=== PATIENT | female | born 1975 | race Caucasian/White ===

== ENCOUNTER 2019-10-16 16:09 | Emergency (ER) | payer OTHER, BC ==
--- OUTSIDE RECORDS SUMMARY | 2019-10-16 16:15 | XMS REPORT | Continuity of Care Document ---
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 Onset: 09/10/2018 Social History Type Date Description Comments Sex Unknown Tobacco Use Start: Unknown Never Smoked Cigarettes Smoking Status Reviewed: 09/10/19 Never Smoked Cigarettes ETOH Use Occasionally consumes wine Tobacco Use Start: Unknown Patient has never smoked Recreational Drug Use Denies Drug Use Exercise Type/Frequency Exercises rarely does house chores only , some walking Allergies, Adverse Reactions, Alerts Active Allergies Reaction Severity Comments Date Penicillin Difficulty breathing, anaphylaxis Severe 09/30/2014 Latex 09/30/2014 Medications Active Medications SIG Qnty Indications Ordering Date Provider Omeprazole 1 by mouth 30caps K21.9 Leisa Molina, 08/26/[address] every day Brisa, FACP Cyclobenzaprine HCL take 1 tablet Unknown 10mg by mouth at hs Tablets Tramadol HCL ont tab 3-4 Unknown 50mg Tablets times a day Ibuprofen three times a Unknown 600mg Tablets day Isibloom take one pill 84tabs Gabi Isaac, N.P. 0.15-30mg-mcg daily, skip Tablets placebo pills Gabapentin 3 tabs q hs Unknown 100mg Capsules Multivitamin Adult 1 by mouth Unknown Tablets every day Medications Administered in Office Medication SIG Qnty Indications Ordering Provider Date Td(Adult),Unspecified Unknown 05/25/2009 Injection Immunizations CPT Code Status Date Vaccine Lot # [id number] Given 05/21/2017 Tdap - Tetanus/Diptheria/Acellular Pertussis [id number] Refused 08/12/2018 Influenza Virus Vaccine, Quadrivalent, Split, Preservative Free [id number] Refused 05/21/2017 Influenza Virus Vaccine, Quadrivalent, Split, Preservative Free Vital Signs Date Vital Result Comment 09/10/2019 1:10pm Height 62 inches 5'2" Weight 138.00 lb Heart Rate 76 /min BP Systolic 110 mmHg BP Diastolic 60 mmHg Body Temperature 97.5 F O2 % BldC Oximetry 98 % BMI (Body Mass Index) 25.2 kg/m2 09/04/2019 4:34pm Height 62 inches 5'2" Weight 139.00 lb Heart Rate 61 /min BP Systolic Sitting 134 mmHg BP Diastolic Sitting 77 mmHg O2 % BldC Oximetry 99 % BMI (Body Mass Index) 25.4 kg/m2 Results Test Acquired Date Facility Test Result H/L Range Note Comp Metabolic 08/27/2019 [facility] Sodium 138 mmol/L Normal 135-145 [address] [place] [address] [phone] Potassium 4.3 mmol/L Normal 3.5-5.0 Chloride 105 mmol/L Normal 101-111 Co2 Carbon Dioxide 27 mmol/L Normal 22-32 Anion Gap 6 mmol/L Normal 2-11 Glucose 90 mg/dL Normal 70-100 Blood Urea Nitrogen 14 mg/dL Normal 6-24 Creatinine 0.89 mg/dL Normal 0.51-0.95 BUN/Creatinine Ratio 15.7 Normal 8-20 Calcium 9.2 mg/dL Normal 8.6-10.3 Total Protein 6.7 g/dL Normal 6.4-8.9 Albumin 4.2 g/dL Normal 3.2-5.2 Globulin 2.5 g/dL Normal 2-4 Albumin/Globulin Ratio 1.7 Normal 1-3 Total Bilirubin 0.30 mg/dL Normal 0.2-1.0 Alkaline Phosphatase 47 U/L Normal 34-104 Alt 7 U/L Normal 7-52 Ast 12 U/L Low 13-39 Egfr Non- 69.2 >60 Egfr 83.8 >60 1 CBC Auto 08/27/2019 [facility] White Blood 5.2 10^3/uL Normal 3.5-10.[address] [place] [address] [phone] Red Blood Count 3.95 10^6/uL Normal 3.70-4.87 Hemoglobin 12.1 g/dL Normal 12.0-16.0 Hematocrit 36 % Normal 35-47 Mean Corpuscular Volume 90 fL Normal 80-97 Mean Corpuscular Hemoglobin 31 pg Normal 27-31 Mean Corpuscular HGB Conc 34 g/dL Normal 31-36 Red Cell Distribution Width 13 % Normal 10-15 Platelet Count 318 10^3/uL Normal 150-450 Mean Platelet Volume 9.1 fL Normal 7.4-10.4 Abs Neutrophils 3.1 10^3/uL Normal 1.5-7.7 Abs Lymphocytes 1.6 10^3/uL Normal 1.0-4.8 Abs Monocytes 0.4 10^3/uL Normal 0-0.8 Abs Eosinophils 0.1 10^3/uL Normal 0-0.6 Abs Basophils 0.0 10^3/uL Normal 0-0.2 Abs Nucleated RBC 0.0 10^3/uL Granulocyte % 59.4 % Lymphocyte % 31.3 % Monocyte % 6.9 % Eosinophil % 2.1 % Basophil % 0.3 % Nucleated Red Blood Cells % 0.0 Order 08/26/2019 [employer] In-House EKG <pending> CBC Auto Diff 06/10/2019 [facility] White Blood 4.8 10^3/uL Normal 3.5-10.[address] [place] [address] [phone] Red Blood Count 3.85 10^6/uL Normal 3.70-4.87 Hemoglobin 11.6 g/dL Low 12.0-16.0 Hematocrit 35 % Normal 35-47 Mean Corpuscular Volume 91 fL Normal 80-97 Mean Corpuscular Hemoglobin 30 pg Normal 27-31 Mean Corpuscular HGB Conc 33 g/dL Normal 31-36 Red Cell Distribution Width 13 % Normal 10-15 Platelet Count 308 10^3/uL Normal 150-450 Mean Platelet Volume 9.0 fL Normal 7.4-10.4 Abs Neutrophils 2.8 10^3/uL Normal 1.5-7.7 Abs Lymphocytes 1.5 10^3/uL Normal 1.0-4.8 Abs Monocytes 0.3 10^3/uL Normal 0-0.8 Abs Eosinophils 0.1 10^3/uL Normal 0-0.6 Abs Basophils 0.0 10^3/uL Normal 0-0.2 Abs Nucleated RBC 0.0 10^3/uL Granulocyte % 58.5 % Lymphocyte % 32.1 % Monocyte % 6.8 % Eosinophil % 2.1 % Basophil % 0.5 % Nucleated Red Blood Cells % 0.0 Protein 06/10/2019 [facility] Total 6.8 g/dL 6.3 - Electrophoresis Porphyrio Protein(Pep) 7.9 [place] [address] [phone] Albumin 3.3 g/dL Abnormal 3.4-4.7 Alpha-1 Globulin 0.3 g/dL 0.1-0.3 Alpha-2 Globulin 1.0 g/dL 0.6-1.0 Beta Globulin 1.1 g/dL 0.7-1.2 Gamma Globulin 1.1 g/dL 0.6-1.6 Albumin/Globulin Ratio 0.95 Impression See Comment 2 Laboratory 06/10/2019 [facility] TSH (Thyroid 3.05 mcIU/mL Normal 0.34-5.[address] Stim Horm) [place] [address] [phone] HIV 1&2 p24 06/10/2019 [facility] HIV 4th Nonreactive Nonreactive [place] [address] [phone] Laboratory 06/10/2019 [facility] Vitamin B12 266 pg/mL Normal 180-[address] [place] [address] [phone] Basic 06/10/2019 [facility] Sodium 140 mmol/L Normal 135-145 Metabolic [place] [address] [phone] Potassium 3.9 mmol/L Normal 3.5-5.0 Chloride 107 mmol/L Normal 101-111 Co2 Carbon Dioxide 27 mmol/L Normal 22-32 Anion Gap 6 mmol/L Normal 2-11 Glucose 80 mg/dL Normal 70-100 Blood Urea Nitrogen 10 mg/dL Normal 6-24 Creatinine 0.82 mg/dL Normal 0.51-0.95 BUN/Creatinine Ratio 12.2 Normal 8-20 Calcium 9.5 mg/dL Normal 8.6-10.3 Egfr Non- 76.1 >60 Egfr 92.1 >60 4 Heavy Metal Blool 06/10/2019 [facility] Arsenic <1 ng/mL 0- [address] [place] [address] [phone] Lead <1.0 g/dL 0.0-4.9 6 Mercury <1 ng/mL 0-9 7 Cadmium <0.2 ng/mL 0.0-4.[address] [place] [id number] [employer] CHEMUNG Guardian First Name LALI Guardian Last Name CHRISTINE REYES Venous/Capillary Heavy Metals Venous Patient Race WHITE Submitting Laboratory 9 Laboratory test 06/10/2019 [facility] Hemoglobin A1c 5.5 % Normal 4.0-5.6 10 [address] (Glyco HGB) [place] [address] [phone] Rubella Screen Equivocal Immune Rubeola Measles 06/10/2019 [facility] Rubeola (Measles) Positive 11 Igg AB [address] [place] [address] [phone] Rubeola IgG Antibody Index 3.3 12 Mumps Igg 06/10/2019 [facility] Mumps Virus IgG Antibody Positive 13 [address] [place] [address] [phone] Mumps IgG Antibody Index 1.1 14 1 Because ethnic data is not always readily available, this report includes an eGFR for both -Americans and non- Americans. The National Kidney Disease Education Program (NKDEP) does not endorse the use of the MDRD equation for patients that are not between the ages of 18 and 70, are , have extremes of body size, muscle mass, or nutritional status, or are non- or non-. According to the National Kidney Foundation, irrespective of diagnosis, the stage of the disease is based on the level of kidney function: Stage Description GFR(mL/min/1.73 m(2)) 1 Kidney damage with normal or decreased GFR 90 2 Kidney damage with mild decrease in GFR 60-89 3 Moderate decrease in GFR 30-59 4 Severe decrease in GFR 15-29 5 Kidney failure <15 (or dialysis) 2 RESULT: No apparent monoclonal protein on serum electrophoresis. Test Performed by: [facility] [address] [place] [address] Emergency Management Program Specialist: Daniel Wolfe M.D. Ph.D.; CLIA# [id number] 3 Normal Range 180 to 914 Indeterminate Range 145 to 180 Deficient Range <145 4 Because ethnic data is not always readily available, this report includes an eGFR for both -Americans and non- Americans. The National Kidney Disease Education Program (NKDEP) does not endorse the use of the MDRD equation for patients that are not between the ages of 18 and 70, are , have extremes of body size, muscle mass, or nutritional status, or are non- or non-. According to the National Kidney Foundation, irrespective of diagnosis, the stage of the disease is based on the level of kidney function: Stage Description GFR(mL/min/1.73 m(2)) 1 Kidney damage with normal or decreased GFR 90 2 Kidney damage with mild decrease in GFR 60-89 3 Moderate decrease in GFR 30-59 4 Severe decrease in GFR 15-29 5 Kidney failure <15 (or dialysis) 5 ADDITIONAL INFORMATION This test was developed and its performance characteristics determined by [facility] in a manner consistent with CLIA requirements. This test has not been cleared or approved by the U.S. Food and Drug Administration. 6 ADDITIONAL INFORMATION Testing performed by Inductively Coupled Plasma-Mass Spectrometry (ICP-MS). This test was developed and its performance characteristics determined by [facility] in a manner consistent with CLIA requirements. This test has not been cleared or approved by the U.S. Food and Drug Administration. 7 ADDITIONAL INFORMATION This test was developed and its performance characteristics determined by [facility] in a manner consistent with CLIA requirements. This test has not been cleared or approved by the U.S. Food and Drug Administration. 8 ADDITIONAL INFORMATION This test was developed and its performance characteristics determined by [facility] in a manner consistent with CLIA requirements. This test has not been cleared or approved by the U.S. Food and Drug Administration. 9 Test Performed by: [place] [address] Emergency Management Program Specialist: Daniel Wolfe M.D. Ph.D.; CLIA# [id number] 10 Therapeutic target for the treatment of diabetes mellitus patients is <7% HBA1C, and in selective patients <6.0%. Please refer to [place] [employer] diabetic care guidelines for further information. 11 Results suggest response to immunization or prior exposure to the virus. REFERENCE VALUE Vaccinated: Positive (>=1.1 AI) Unvaccinated: Negative (<=0.8 AI) 12 Test Performed by: [place] [address] Emergency Management Program Specialist: Daniel Wolfe M.D. Ph.D.; CLIA# [id number] 13 Results suggest response to immunization or prior exposure to the virus. REFERENCE VALUE Vaccinated: Positive (>=1.1 AI) Unvaccinated: Negative (<=0.8 AI) 14 Test Performed by: [place] [address] Emergency Management Program Specialist: Daniel Wolfe M.D. Ph.D.; [facility]# [id number] Procedures Date Code Description Status 08/26/2019 86781 EKG Tracing & Interpretation Completed 10/17/2018 [id number] Mammogram Completed 10/11/2017 [id number] Mammogram Completed Medical Devices Description No Information Available Encounters Type Date Location Provider Dx Diagnosis Office Visit 08/26/2019 [facility] Internal Leisaangelia Molina, K21.9 Gastro-esophageal 11:30a Medicine - Gavin Ledezma, FACP reflux disease without esophagitis R07.9 Chest pain, unspecified Office Visit 06/22/2019 1:20p [facility] Gabi Isaac, N.P. R51 Headache [facility] Z79.3 penitentiary (current) use of hormonal contraceptives Office Visit 06/03/2019 8:50a [facility] Internal Gini R20.8 Other disturbances Medicine - Brisa Hernandez of skin sensation [facility] Z30.014 Encounter for initial prescription of uterin contracep dev Z23 Encounter for immunization Z02.89 Encounter for other administrative examinations Assessments Date Code Description Provider 09/10/2019 Z00.00 Encounter for general adult medical Leisa Molina M.D., FACP examination without abnormal findings 09/10/2019 K21.9 Gastro-esophageal reflux disease without Leisa Molina M.D. , FACP esophagitis 09/10/2019 M54.5 Low back pain Leisa Molina M.D., FACP 09/10/2019 Z12.31 Encounter for screening mammogram for Leisa Molina M.D., FACP malignant neoplasm of breast 09/04/2019 K21.9 Gastro-esophageal reflux disease without Leisa Molina M.D. , FACP esophagitis 09/04/2019 Z13.220 Encounter for screening for lipoid Leisa Molina M.D., FACP disorders 08/26/2019 K21.9 Gastro-esophageal reflux disease without Leisa Molina M.D. , FACP esophagitis 08/26/2019 R07.9 Chest pain, unspecified Leisa Molina M.D., FACP 06/22/2019 R51 Headache Gabi Isaac, N.P. 06/22/2019 Z79.3 penitentiary (current) use of hormonal Gabi Isaac, N.P. 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 06/03/2019 Z30.014 Encounter for initial prescription of Gini Hernandez M.D. intrauterine contraceptive device 06/03/2019 Z23 Encounter for immunization Gini Hernandez M.D. 06/03/2019 Z02.89 Encounter for other administrative Gini Hernandez M.D. examinations Plan of Treatment 09/10/2019 - Leisa Molina M.D., FACPZ00.00 Encounter for general adult medical examination without abnormal findingsComments:GENERAL PHYSICAL EXAM: You are up to date with your vaccinations. Your last tetanus/pertussis booster was in .You report that you had an MMR last week.I urge you to have a flu shot soon.I recommend regular screening mammography (your last mammogram was in 07/21 ).You are due for a colonoscopy when you turn 51.I think that it is a good idea to have an Advance Directive on file here.We reviewed healthy lifestyle practices, specifically, strategies to maintain a durable ideal body weight and an aerobic exercise routine.K21.9 Gastro-esophageal reflux disease without esophagitisComments:GASTRITIS:I am glad that you are feeling better.Continue the omeprazole for 2-3 weeks, then stop. If symptoms recur, resume this medication and call me back.M54.5 Low back painComments:LOW BACK PAIN:I am glad that his issue is manageable with your current regimen.Let me know if you would like to explore more PT modalities such as therapeutic ultrasound or a TENS unit .Z12.31 Encounter for screening mammogram for malignant neoplasm of breast Functional Status Description No Information Available Mental Status Description No Information Available Referrals Refer to Reason for Referral Status Appt Date Allison Garcia MD Sent 06/15/2019 [address] [facility], [place] [address] [phone]
--- OUTSIDE RECORDS SUMMARY | 2019-10-16 16:15 | XMS REPORT | Continuity of Care Document ---
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 [phone] Medicine Problems Active Problems Provider Date Sacroiliac [...] Ordering Date Provider Omeprazole 1 by mouth every 30caps K21.9 Leisa Molina, 08/26/[address] noemy Ledezma, FACP Cyclobenzaprine HCL take 1 tablet by Unknown 10mg mouth at hs Tablets Tramadol HCL ont tab 3-4 times Unknown 50mg Tablets a day Ibuprofen three times a day Unknown 600mg Tablets Isibloom take one pill 84tabs G43.829 Allison Garcia, 0.15-30mg-mcg daily, skip MD Tablets placebo pills d/t menstrual migraines Gabapentin 3 tabs q hs Unknown 100mg Capsules Multivitamin Adult 1 by mouth every Unknown Tablets day Medications Administered in Office Medication SIG Qnty Indications Ordering Provider Date Td(Adult),Unspecified Unknown 05/25/2009 Injection Immunizations CPT Code Status Date Vaccine Lot # [id number] Given 05/21/2017 Tdap - Tetanus/Diptheria/Acellular Pertussis [id number] Refused 08/12/2018 Influenza Virus Vaccine, Quadrivalent, Split, Preservative Free [id number] Refused 05/21/2017 Influenza Virus Vaccine, Quadrivalent, Split, Preservative Free Vital Signs Date Vital Result Comment 09/10/2019 2:57pm Height 62 inches 5'2" Weight 139.00 lb Heart Rate 67 /min BP Systolic 128 mmHg BP Diastolic 79 mmHg O2 % BldC Oximetry 99 % BMI (Body Mass Index) 25.4 kg/m2 Last Menstrual Period [id number] 09/10/2019 1:10pm Height 62 inches 5'2" Weight 138.00 lb Heart Rate 76 /min BP Systolic 110 mmHg BP Diastolic 60 mmHg Body Temperature 97.5 F O2 % BldC Oximetry 98 % BMI (Body Mass Index) 25.2 kg/m2 Results Test Acquired Date Facility Test Result H/L Range Note Laboratory test 09/10/2019 [facility] Urine negative Negative finding Comp Metabolic 08/27/2019 [facility] Sodium 138 mmol/L Normal 135-145 Panel [address] [place] [address] [phone] Potassium 4.3 mmol/L Normal 3.5-5.0 Chloride 105 [...] Egfr 83.8 >60 1 CBC Auto 08/27/2019 [facility] White Blood 5.2 10^3/uL Normal 3.5-10.[address] [place] [address] [phone] Red Blood Count 3.95 10^6/uL Normal 3.70-4.87 [...] Red Blood Cells % 0.0 Order 08/26/2019 [facility] EKG <pending> CBC Auto Diff 06/10/2019 [facility] White Blood 4.8 10^3/uL Normal 3.5-10.[address] [place] [address] [phone] Red Blood Count 3.85 10^6/uL Normal 3.70-4.87 [...] Red Blood Cells % 0.0 Protein 06/10/2019 [facility] Total 6.8 g/dL 6.3 - Electrophoresis qunb Protein(Pep) 7.9 [place] [address] [phone] Albumin 3.3 g/dL Abnormal 3.4-4.7 Alpha-1 Globulin 0.3 g/dL 0.1-0.3 Alpha-2 Globulin 1.0 g/dL 0.6-1.0 Beta Globulin 1.1 g/dL 0.7-1.2 Gamma Globulin 1.1 g/dL 0.6-1.6 Albumin/Globulin Ratio 0.95 Impression See Comment 2 Laboratory 06/10/2019 [facility] TSH (Thyroid 3.05 mcIU/mL Normal 0.34-5.[address] Stim Horm) [place] [address] [phone] HIV 1&2 p24 06/10/2019 [facility] HIV 4th Nonreactive Nonreactive [place] [address] [phone] Laboratory 06/10/2019 [facility] Vitamin B12 266 pg/mL Normal 180-914 3 test finding [address] [place] [address] [phone] Basic 06/10/2019 [facility] Sodium 140 mmol/L Normal 135-[address] [place] [address] [phone] Potassium 3.9 mmol/L Normal 3.5-5.0 Chloride 107 mmol/L Normal 101-111 Co2 Carbon Dioxide 27 mmol/L Normal 22-32 Anion Gap 6 mmol/L Normal 2-11 Glucose 80 mg/dL Normal 70-100 Blood Urea Nitrogen 10 mg/dL Normal 6-24 Creatinine 0.82 mg/dL Normal 0.51-0.95 BUN/Creatinine Ratio 12.2 Normal 8-20 Calcium 9.5 mg/dL Normal 8.6-10.3 Egfr Non- 76.1 >60 Egfr 92.1 >60 4 Heavy Metal Blool 06/10/2019 [facility] Arsenic <1 ng/mL 0- [address] [place] [address] [phone] Lead <1.0 g/dL 0.0-4.9 6 Mercury <1 ng/mL 0-9 7 Cadmium <0.2 ng/mL 0.0-4.[address] [place] [address] [facility] CHEMUNG Guardian First Name LALI Guardian Last Name CHRISTINE REYES Venous/Capillary Heavy Metals Venous Patient Race WHITE Submitting Laboratory 9 Laboratory test 06/10/2019 [facility] Hemoglobin A1c 5.5 % Normal 4.0-5.6 10 finding [address] (Glyco HGB) [place] [address] [phone] Rubella Screen Equivocal Immune Rubeola Measles 06/10/2019 [facility] Rubeola (Measles) Positive 11 Igg AB [address] [place] [address] [phone] Rubeola IgG Antibody Index 3.3 12 Mumps Igg 06/10/2019 [facility] Mumps Virus IgG Antibody Positive 13 [address] [place] [address] [phone] Mumps IgG Antibody Index 1.1 14 1 [...] protein on serum electrophoresis. Test Performed by: [facility] [address] [place] [address] Teacher'S Assistant: Daniel Wolfe M.D. Ph.D.; CLIA# [id number] 3 Normal Range 180 to 914 Indeterminate [...] developed and its performance characteristics determined by [facility] in a manner consistent with CLIA requirements. This test has not been cleared or approved by the U.S. Food and Drug Administration. 6 ADDITIONAL INFORMATION Testing performed by Inductively Coupled Plasma-Mass Spectrometry (ICP-MS). This test was developed and its performance characteristics determined by [facility] in a manner consistent with CLIA requirements. This test has not been cleared or approved by the U.S. Food and Drug Administration. 7 ADDITIONAL INFORMATION This test was developed and its performance characteristics determined by [facility] in a manner consistent with CLIA requirements. This test has not been cleared or approved by the U.S. Food and Drug Administration. 8 ADDITIONAL INFORMATION This test was developed and its performance characteristics determined by [facility] in a manner consistent with CLIA requirements. This test has not been cleared or approved by the U.S. Food and Drug Administration. 9 Test Performed by: [place] [address] Teacher'S Assistant: Daniel Wolfe M.D. Ph.D.; CLIA# [id number] 10 Therapeutic target for the treatment of diabetes mellitus patients is <7% HBA1C, and in selective patients <6.0%. Please refer to [place] [employer] diabetic care guidelines for further information. 11 Results suggest response to immunization or prior exposure to the virus. REFERENCE VALUE Vaccinated: Positive (>=1.1 AI) Unvaccinated: Negative (<=0.8 AI) 12 Test Performed by: [facility] [place] [address] Teacher'S Assistant: Daniel Wolfe M.D. Ph.D.; CLIA# [id number] 13 Results suggest response to immunization or prior exposure to the virus. REFERENCE VALUE Vaccinated: Positive (>=1.1 AI) Unvaccinated: Negative (<=0.8 AI) 14 Test Performed by: [facility] - [address], [place] [address] Teacher'S Assistant: Daniel Wolfe M.D. Ph.D.; IA# [id number] Procedures Date Code Description Status 08/26/2019 24057 EKG Tracing & Interpretation Completed 10/17/2018 [id number] Mammogram Completed 10/11/2017 [id number] Mammogram Completed Medical Devices Description No Information Available Encounters Type Date Location Provider Dx Diagnosis Office Visit 08/26/2019 [facility] Internal Leisa Molina, K21.9 Gastro-esophageal 11:30a Medicine - Gavin Ledezma, FACP reflux disease without esophagitis R07.9 Chest pain, unspecified Office Visit 06/22/2019 1:20p [facility] Gabi Isaac N.[facility] R51 Headache [facility] Z79.3 [facility] (current) use of hormonal contraceptives Office Visit 06/03/2019 8:50a [facility] Internal Gini R20.8 Other disturbances Medicine - Brisa Hernandez of skin sensation Ccmob Z30.014 Encounter for initial prescription of uterin contracep dev Z23 Encounter for immunization Z02.89 Encounter for other administrative examinations Assessments Date Code Description Provider 09/10/2019 G43.829 Menstrual migraine, not intractable, Allison Garcia MD without status migrainosus 09/10/2019 Z00.00 Encounter for general adult medical Leisa Molina M.D., FACP examination without abnormal findings 09/10/2019 Z87.410 Personal history of cervical dysplasia Allison Garcia MD 09/10/2019 K21.9 Gastro-esophageal reflux disease without Leisa [...] Molina M.D., FACP 06/22/2019 R51 Headache Gabi Poncho, N.P. 06/22/2019 Z79.3 [facility] (current) use of hormonal Gabi Poncho, N.P. 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 06/03/2019 Z30.014 Encounter for initial prescription of Gini Hernandez M.D. intrauterine contraceptive device 06/03/2019 Z23 Encounter for immunization Gini Hernandez M.D. 06/03/2019 Z02.89 Encounter for other administrative Gini Hernandez M.D. examinations Plan of Treatment 09/10/2019 - Allison Garcia MDG43.829 Menstrual migraine, not intractable, without status migrainosusComments:#84, 4 refillsReferral:[facility], Follow up:Plan Annual one yearZ87.410 Personal history of cervical dysplasiaNew Labs:Cytology, Ordered: 09/10/19 Functional Status Description No Information Available Mental Status Description No Information Available Referrals Refer to Reason for Referral Status Appt Date [facility] Menstrual migraine, develops severe headache Created 00/00/ 0000 during placebo pills of control pill pack. [address] [facility] [address] [place] [address] [phone] Allison Garcia MD Sent 06/15/2019 [address] [facility], [place] [address] [phone]
--- OUTSIDE RECORDS SUMMARY | 2019-10-16 16:15 | XMS REPORT | Continuity of Care Document ---
:1975 External Reference #:[id number] Author Name Leisa Molina M.D., FACP (transmitted by agent of provider Jeannie Valera) Address [address] 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 Onset: 09/10/2018 Social History Type Date Description Comments Sex Unknown Tobacco Use Start: Unknown Never Smoked Cigarettes Smoking Status Reviewed: 08/26/19 Never Smoked Cigarettes ETOH Use Occasionally consumes [...] CPT Code Status Date Vaccine Lot # [id number] Given 05/21/2017 Tdap - Tetanus/Diptheria/Acellular Pertussis [id number] Refused 08/12/2018 Influenza Virus Vaccine, Quadrivalent, Split, Preservative Free [id number] Refused 05/21/2017 Influenza Virus Vaccine, Quadrivalent, Split, Preservative Free Vital Signs Date Vital Result Comment 08/26/2019 11:29am Height 62 inches 5'2" Weight 139.38 lb Heart Rate 75 /min BP Systolic 126 mmHg BP Diastolic 72 mmHg Body Temperature 97.5 F O2 % BldC Oximetry 98 % BMI (Body Mass Index) 25.5 kg/m2 06/22/2019 1:30pm Height 62 inches 5'2" Weight 137.25 lb Heart Rate 64 /min BP Systolic 139 mmHg BP Diastolic 84 mmHg O2 % BldC Oximetry 100 % BMI (Body Mass Index) 25.1 kg/m2 Last Menstrual Period [id number] Results Test Acquired Date Facility Test Result H/L Range Note Order 08/26/2019 [facility] In-House EKG <pending> CBC Auto 06/10/2019 [facility] White Blood 4.8 10^3/uL Normal 3.5-10.[address] [place] [address] [phone] Red Blood Count 3.85 10^6/uL Normal 3.70-4.87 [...] Red Blood Cells % 0.0 Protein 06/10/2019 [facility] Total 6.8 g/dL 6.3 - Electrophoresis [facility] Protein(Pep) 7.9 [place] [address] [phone] Albumin 3.3 g/dL Abnormal 3.4-4.7 Alpha-1 Globulin 0.3 g/dL 0.1-0.3 Alpha-2 Globulin 1.0 g/dL 0.6-1.0 Beta Globulin 1.1 g/dL 0.7-1.2 Gamma Globulin 1.1 g/dL 0.6-1.6 Albumin/Globulin Ratio 0.95 Impression See Comment 1 Laboratory 06/10/2019 [facility] TSH (Thyroid 3.05 mcIU/mL Normal 0.34-5.[address] [facility] [address] Stim Horm) [place] [address] [phone] HIV 1&2 p24 06/10/2019 [facility] HIV 4th Nonreactive Nonreactive Screen [facility] [place] [address] [phone] Laboratory 06/10/2019 [facility] Vitamin B12 266 pg/mL Normal 180-914 2 test finding [place] [address] [phone] Basic 06/10/2019 [facility] Sodium 140 mmol/L Normal 135-145 Metabolic [facility] [place] [address] [phone] Potassium 3.9 mmol/L Normal 3.5-5.0 Chloride 107 mmol/L Normal 101-111 Co2 Carbon Dioxide 27 mmol/L Normal 22-32 Anion Gap 6 mmol/L Normal 2-11 Glucose 80 mg/dL Normal 70-100 Blood Urea Nitrogen 10 mg/dL Normal 6-24 Creatinine 0.82 mg/dL Normal 0.51-0.95 BUN/Creatinine Ratio 12.2 Normal 8-20 Calcium 9.5 mg/dL Normal 8.6-10.3 Egfr Non- 76.1 >60 Egfr 92.1 >60 3 Heavy Metal Blool 06/10/2019 [facility] Arsenic <1 ng/mL 0- 12 4 [address] [place] [address] [phone] Lead <1.0 g/dL 0.0-4.9 5 Mercury <1 ng/mL 0-9 6 Cadmium <0.2 ng/mL 0.0-4.[address] [place] [address] [place] [address] [facility] CHEMUNG Guardian First Name LALI Guardian Last Name CHRISTINE REYES Venous/Capillary Heavy Metals Venous Patient Race WHITE Submitting Laboratory 8 Laboratory test 06/10/2019 [facility] Hemoglobin A1c 5.5 % Normal 4.0-5.6 9 finding 101 [facility] (Glyco HGB) [place] [address] [phone] Rubella Screen Equivocal Immune Rubeola Measles 06/10/2019 [facility] Rubeola (Measles) Positive 10 Igg AB [address] [facility] [place] [address] [phone] Rubeola IgG Antibody Index 3.3 11 Mumps Igg 06/10/2019 [facility] Mumps Virus IgG Antibody Positive 12 [address] [place] [address] [phone] Mumps IgG Antibody Index 1.1 13 1 RESULT: No apparent monoclonal protein on serum electrophoresis. Test Performed by: [facility] [address] [place] [address] Engineering Equipment Operator: Daniel Wolfe M.D. Ph.D.; CLIA# [id number] 2 Normal Range 180 to 914 Indeterminate Range 145 to 180 Deficient Range <145 3 Because ethnic data is not always readily [...] 15-29 5 Kidney failure <15 (or dialysis) 4 ADDITIONAL INFORMATION This test was developed and its performance characteristics determined by [facility] in a manner consistent with CLIA requirements. This test has not been cleared or approved by the U.S. Food and Drug Administration. 5 ADDITIONAL INFORMATION Testing performed by Inductively Coupled Plasma-Mass Spectrometry (ICP-MS). This test was developed and its performance characteristics determined by [facility] in a manner consistent with CLIA requirements. This test has not been cleared or approved by the U.S. Food and Drug Administration. 6 ADDITIONAL INFORMATION This test was developed and its performance characteristics determined by [facility] in a manner consistent with CLIA requirements. This test has not been cleared or approved by the U.S. Food and Drug Administration. 7 ADDITIONAL INFORMATION This test was developed and its performance characteristics determined by [facility] in a manner consistent with CLIA requirements. This test has not been cleared or approved by the U.S. Food and Drug Administration. 8 Test Performed by: [facility] - [address] [address] Engineering Equipment Operator: Daniel Wolfe M.D. Ph.D.; CLIA# [id number] 9 Therapeutic target for the treatment of diabetes mellitus patients is <7% HBA1C, and in selective patients <6.0%. Please refer to [place] [employer] diabetic care guidelines for further information. 10 Results suggest response to immunization or prior exposure to the virus. REFERENCE VALUE Vaccinated: Positive (>=1.1 AI) Unvaccinated: Negative (<=0.8 AI) 11 Test Performed by: [place] [address] Engineering Equipment Operator: Daniel Wolfe M.D. Ph.D.; CLIA# [id number] 12 Results suggest response to immunization or prior exposure to the virus. REFERENCE VALUE Vaccinated: Positive (>=1.1 AI) Unvaccinated: Negative (<=0.8 AI) 13 Test Performed by: [place] [address] Engineering Equipment Operator: Daniel Wolfe M.D. Ph.D.; CLIA# [id number] Procedures Date Code Description Status 08/26/2019 65757 EKG Tracing & Interpretation Completed 10/17/2018 [id number] Mammogram Completed 10/11/2017 [id number] Mammogram Completed Medical Devices Description No Information Available Encounters Type Date Location Provider Dx Diagnosis Office Visit 06/22/2019 1:20p [facility] Gabi Isaac, N.P. R51 Headache [facility] Z79.3 longterm (current) use of hormonal contraceptives Office Visit 06/03/2019 8:50a [facility] Internal Gini R20.8 Other disturbances Medicine - Brisa Hernandez of skin sensation Ccmob Z30.014 Encounter for initial prescription of uterin contracep dev Z23 Encounter for immunization Z02.89 Encounter for other administrative examinations Assessments Date Code Description Provider 08/26/2019 K21.9 Gastro-esophageal reflux disease without Leisa Molina M.D. , FACP esophagitis 08/26/2019 R07.9 Chest pain, unspecified Leisa Molina M.D., FACP 06/22/2019 R51 Headache Gabi Isaac N.P. 06/22/2019 Z79.3 longterm (current) use of hormonal Gabi Isaac, N.P. 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 06/03/2019 Z30.014 Encounter for initial prescription of Gini Hernandez M.D. intrauterine contraceptive device 06/03/2019 Z23 Encounter for immunization Gini Hernandez M.D. 06/03/2019 Z02.89 Encounter for other administrative Gini Hernandez M.D. examinations Plan of Treatment Future Appointment(s):09/04/2019 4:30 pm - Leisa Molina M.D., FACP at [facility] Internal Medicine - [facility]09/10/2019 1:00 pm - Leisa Molina M.D., FACP at [facility] Internal Medicine - [facility]09/10/2019 3:00 pm - Allison Garcia MD at [facility]08/26/2019 - Leisa Molina M.D., FACPK21.9 Gastro-esophageal reflux disease without esophagitisNew Medication:Omeprazole 20 mg - 1 by mouth every dayComments:ACID REFLUX:The chest symptoms you describe are suggestive of esophageal spasm. This is typically associated with longstanding GERD.It is possible that you may be experiencing atypical biliary colic.Iwould like to obtain an ultrasound of your upper abdomen.I recommend that you take OTC Prilosec (or the rx omeprazole) daily. You should also avoid NSAID's such as ibuprofen and naprosyn and follow the written instructions regarding nonpharmacologic strategies. If you are not feeling better over the next day or two, please call back. If you are feeling worse or are unable to eat or drink you may need to go to the Emergency Department.Follow up:1 weekR07.9 Chest pain, unspecified Functional Status Description No Information Available Mental Status Description No Information Available Referrals Refer to Reason for Referral Status Appt Date Allison Garcia MD Sent 06/15/2019 [address] [facility], [address] [place] [id number] [phone]
--- OUTSIDE RECORDS SUMMARY | 2019-10-16 16:15 | XMS REPORT | Continuity of Care Document ---
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 Onset: 09/10/2018 Social History Type Date Description Comments Sex Unknown Tobacco Use Start: Unknown Never Smoked Cigarettes Smoking Status Reviewed: 09/04/19 Never Smoked Cigarettes ETOH Use Occasionally consumes [...] CPT Code Status Date Vaccine Lot # [id number] Given 05/21/2017 Tdap - Tetanus/Diptheria/Acellular Pertussis [id number] Refused 08/12/2018 Influenza Virus Vaccine, Quadrivalent, Split, Preservative Free [id number] Refused 05/21/2017 Influenza Virus Vaccine, Quadrivalent, Split, Preservative Free Vital Signs Date Vital Result Comment 09/04/2019 4:34pm Height 62 inches 5'2" Weight 139.00 lb Heart Rate 61 /min BP Systolic Sitting 134 mmHg BP Diastolic Sitting 77 mmHg O2 % BldC Oximetry 99 % BMI (Body Mass Index) 25.4 kg/m2 08/26/2019 11:29am Height 62 inches 5'2" Weight 139.38 lb Heart Rate 75 /min BP Systolic 126 mmHg BP Diastolic 72 mmHg Body Temperature 97.5 F O2 % BldC Oximetry 98 % BMI (Body Mass Index) 25.5 kg/m2 Results Test Acquired Date Facility Test Result H/L Range Note Comp Metabolic 08/27/2019 [facility] Sodium 138 mmol/L Normal 135-145 Panel [address] [place] [address] [phone] Potassium 4.3 mmol/L Normal 3.5-5.0 Chloride 105 [...] Egfr 83.8 >60 1 CBC Auto 08/27/2019 [facility] White Blood 5.2 10^3/uL Normal 3.5-10.[address] [place] [address] [phone] Red Blood Count 3.95 10^6/uL Normal 3.70-4.87 [...] Red Blood Cells % 0.0 Order 08/26/2019 [facility] EKG <pending> CBC Auto Diff 06/10/2019 [facility] White Blood 4.8 10^3/uL Normal 3.5-10.[address] [place] [address] [phone] Red Blood Count 3.85 10^6/uL Normal 3.70-4.87 [...] Red Blood Cells % 0.0 Protein 06/10/2019 [facility] Total 6.8 g/dL 6.3 - Electrophoresis [employer] Protein(Pep) 7.9 [place] [address] [phone] Albumin 3.3 g/dL Abnormal 3.4-4.7 Alpha-1 Globulin 0.3 g/dL 0.1-0.3 Alpha-2 Globulin 1.0 g/dL 0.6-1.0 Beta Globulin 1.1 g/dL 0.7-1.2 Gamma Globulin 1.1 g/dL 0.6-1.6 Albumin/Globulin Ratio 0.95 Impression See Comment 2 Laboratory 06/10/2019 [facility] TSH (Thyroid 3.05 mcIU/mL Normal 0.34-5.[address] Stim [place]) [place] [address] [phone] HIV 1&2 p24 06/10/2019 [facility] HIV 4th Nonreactive Nonreactive [place] [address] [phone] Laboratory 06/10/2019 [facility] Vitamin B12 266 pg/mL Normal 180-[address] [place] [address] [phone] Basic 06/10/2019 [facility] Sodium 140 mmol/L Normal 135-[address] [place] [address] [phone] Potassium 3.9 mmol/L Normal 3.5-5.0 Chloride 107 mmol/L Normal 101-111 Co2 Carbon Dioxide 27 mmol/L Normal 22-32 Anion Gap 6 mmol/L Normal 2-11 Glucose 80 mg/dL Normal 70-100 Blood Urea Nitrogen 10 mg/dL Normal 6-24 Creatinine 0.82 mg/dL Normal 0.51-0.95 BUN/Creatinine Ratio 12.2 Normal 8-20 Calcium 9.5 mg/dL Normal 8.6-10.3 Egfr Non- 76.1 >60 Egfr 92.1 >60 4 Heavy Metal Blool 06/10/2019 [facility] Arsenic <1 ng/mL 0- [address] [place] [address] [phone] Lead <1.0 g/dL 0.0-4.9 6 Mercury <1 ng/mL 0-9 7 Cadmium <0.2 ng/mL 0.0-4.[address] [place] [address] [facility] [place]MUNG Guardian First Name LALI Guardian Last Name CHRISTINE REYES Venous/Capillary Heavy Metals Venous Patient Race WHITE Submitting Laboratory 9 Laboratory test 06/10/2019 [facility] Hemoglobin A1c 5.5 % Normal 4.0-5.6 10 finding [address] (Glyco [place]GB) [place] [address] [phone] Rubella Screen Equivocal Immune Rubeola Measles 06/10/2019 [facility] Rubeola (Measles) Positive 11 Igg AB [address] [place] [address] [phone] Rubeola IgG Antibody Index 3.3 12 Mumps Igg 06/10/2019 [facility] Mumps Virus IgG Antibody Positive 13 [address] [place] [address] [phone] Mumps IgG Antibody Index 1.1 14 1 [...] protein on serum electrophoresis. Test Performed by: [facility] [address] [place] [address] Green Pipefitter: Daniel Wolfe M.D. Ph.D.; CLIA# [id number] 3 Normal Range 180 to 914 Indeterminate [...] developed and its performance characteristics determined by [facility] in a manner consistent with CLIA requirements. This test has not been cleared or approved by the U.S. Food and Drug Administration. 6 ADDITIONAL INFORMATION Testing performed by Inductively Coupled Plasma-Mass Spectrometry (ICP-MS). This test was developed and its performance characteristics determined by [facility] in a manner consistent with CLIA requirements. This test has not been cleared or approved by the U.S. Food and Drug Administration. 7 ADDITIONAL INFORMATION This test was developed and its performance characteristics determined by [facility] in a manner consistent with CLIA requirements. This test has not been cleared or approved by the U.S. Food and Drug Administration. 8 ADDITIONAL INFORMATION This test was developed and its performance characteristics determined by [facility] in a manner consistent with CLIA requirements. This test has not been cleared or approved by the U.S. Food and Drug Administration. 9 Test Performed by: [place] [address] Green Pipefitter: Daniel Wolfe M.D. Ph.D.; CLIA# [id number] 10 Therapeutic target for the treatment of diabetes mellitus patients is <7% HBA1C, and in selective patients <6.0%. Please refer to [place] [employer] diabetic care guidelines for further information. 11 Results suggest response to immunization or prior exposure to the virus. REFERENCE VALUE Vaccinated: Positive (>=1.1 AI) Unvaccinated: Negative (<=0.8 AI) 12 Test Performed by: [facility] [address] Green Pipefitter: Daniel Wolfe M.D. Ph.D.; CLIA# [id number] 13 Results suggest response to immunization or prior exposure to the virus. REFERENCE VALUE Vaccinated: Positive (>=1.1 AI) Unvaccinated: Negative (<=0.8 AI) 14 Test Performed by: [facility] [address] Green Pipefitter: Daniel Wolfe M.D. Ph.D.; [facility]# [id number] Procedures Date Code Description Status 08/26/2019 20891 EKG Tracing & Interpretation Completed 10/17/2018 11099590 Mammogram Completed 10/11/2017 [id number] Mammogram Completed Medical Devices Description No Information Available Encounters Type Date Location Provider Dx Diagnosis Office Visit 08/26/2019 [facility] Internal Leisa Molina, K21.9 Gastro-esophageal 11:30a Medicine - Gavin Ledezma, FACP reflux disease without esophagitis R07.9 Chest pain, unspecified [facility] R51 Headache [facility] Z79.3 correction (current) use of hormonal contraceptives Office Visit 06/03/2019 8:50a [facility] Internal Gini R20.8 Other disturbances Olinda Hernandez M.D. of skin sensation [facility] Z30.014 Encounter for initial prescription of uterin contracep dev Z23 Encounter for immunization Z02.89 Encounter for other administrative examinations Assessments Date Code Description Provider 09/04/2019 K21.9 Gastro-esophageal reflux disease without Leisa Molina M.D. , FACP esophagitis 09/04/2019 Z13.220 Encounter for screening for lipoid Leisa Molina M.D., FACP disorders 08/26/2019 K21.9 Gastro-esophageal reflux disease without Leisa Molina M.D. , FACP esophagitis 08/26/2019 R07.9 Chest pain, unspecified Leisa Molina M.D., FACP 06/22/2019 R51 Headache Gabi Isaac, N.P. 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 06/03/2019 Z30.014 Encounter for initial prescription of Gini Hernandez M.D. intrauterine contraceptive device 06/03/2019 Z23 Encounter for immunization Gini Hernandez M.D. 06/03/2019 Z02.89 Encounter for other administrative Gini Hernandez M.D. examinations Plan of Treatment Future Appointment(s):09/10/2019 1:00 pm - Leisa Molina M.D., FACP at [facility] Internal Medicine - [facility]09/04/2019 - Leisa Molina M.D., FACPK21.9 Gastro- esophageal reflux disease without esophagitisNew Labs:CBC Auto Diff, Ordered: Comp Metabolic Panel, Ordered: 09/04/19Comments:ACID REFLUX:I am glad to hear that you are doing better.I would recommend continuation of the omeprazole ; you may use a double dose periodically, however, if this symptom recurs, please call me back.Avoid NSAID's such as ibuprofen and naprosyn.aboutYour sonogram was normal other than some "sludge" inthe gallbladder.Z13.220 Encounter for screening for lipoid disordersNew Labs:Lipid Profile (Trig/Chol/ HDL), Ordered: 09/04/19 Functional Status Description No Information Available Mental Status Description No Information Available Referrals Refer to Reason for Referral Status Appt Date Allison Garcia MD Sent 06/15/2019 [address] [facility], [place] [address] [phone]
[2019-10-16 16:32] VITALS: BP 152/89
[2019-10-16 17:51] LABS: Influenza A Molecular Negative (Negative); Influenza B Molecular Negative (Negative)
--- NOTE | 2019-10-16 18:24 | UC ---
Respiratory Complaint HPI - HPI Summary HPI Summary: 44 yo female has been ill since 10/08 with fever/chills/nasal congestion/headache and myalgia/sob sore throat . 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 Has been in contact with many people from [facility], [facility] area that bring there pets for treatment her works with a woman who travelled to [place] 2-3 weeks ago her is ill as is the woman Temp 102 - History of Current Complaint Chief Complaint: UCRespiratory Stated Complaint: RESP COMPLAINT Time Seen by Provider: 10/16/19 17:21 Hx Obtained From: Patient Hx Last Menstrual Period: on permanent control Onset/Duration: Gradual Onset, Lasting Days Timing: Constant Severity Initially: Moderate Severity Currently: Mild Pain Intensity: 3 Pain Scale Used: 0-10 Numeric Character: Cough: Nonproductive Aggravating Factors: Nothing Alleviating Factors: Nothing Associated Signs And Symptoms: Positive: Dyspnea, Fever, Chills, URI, Nasal Congestion. Negative: Pleuritic Chest Pain, Wheezing, Hemoptysis, Dizziness, Calf Pain, Calf Swelling, Edema, Hoarseness, Sinus Discomfort - Allergies/Home Medications Allergies/Adverse Reactions: Allergies Allergy/AdvReac Type Severity Reaction Status Date / Time Penicillins Allergy Severe Difficulty Verified 10/16/19 16:32 Breathing latex Allergy Mild Itching Verified 10/16/19 16:32 Home Medications: Home Medications traMADol TAB* [Ultram*] 50 mg PO TID PRN MDD 4 12/16/15 [History Confirmed 10/15] Control Pill 1 tab PO DAILY 08/29/17 [History Confirmed 10/16/19] Ibuprofen TAB* [Advil TAB*] 3 tab PO BID PRN 11/07/17 [History Confirmed ] Gabapentin [Neurontin] 300 mg PO BEDTIME 05/23/18 [History Confirmed 10/16/19] Cyclobenzaprine TAB* [Flexeril 10 MG TAB*] 10 mg PO BEDTIME PRN 10/17/18 [ History Confirmed 10/16/19] PMH/Surg Hx/FS Hx/Imm Hx Previously Healthy: Yes - Surgical History Surgical History: Yes Surgery Procedure, Year, and Place: BUNION SURGERY LEFT FOOT 2011, NERVE ABLASION 2015 - Family History Known Family History: Positive: Hypertension - Social History Alcohol Use: Rare Alcohol Amount: Two drinks per year Substance Use Type: None Substance Use Comment - Amount & Last Used: tramadol Smoking Status (MU): Never Smoked Tobacco Have You Smoked in the Last Year: No Review of Systems All Other Systems Reviewed And Are Negative: Yes Constitutional: Positive: Fever, Chills, Fatigue Skin: Positive: Negative Eyes: Positive: Negative ENT: Positive: Sore Throat, Nasal Discharge Respiratory: Positive: Shortness Of Breath, Cough Cardiovascular: Positive: Negative Gastrointestinal: Positive: Negative Genitourinary: Positive: Negative Motor: Positive: Negative Neurovascular: Positive: Negative Musculoskeletal: Positive: Myalgia Neurological/Mental Status: Positive: Headache Psychological: Positive: Negative Physical Exam Triage Information Reviewed: Yes Appearance: Well-Appearing, No Pain Distress, Well-Nourished Vital Signs: Initial Vital Signs Temp 97.8 F 10/16/19 16:26 Pulse 83 10/16/19 16:26 Resp 16 10/16/19 16:26 BP 152/89 10/16/19 16:26 Pulse Ox 100 10/16/19 16:26 Eye Exam: Normal Eyes: Positive: Conjunctiva Clear ENT: Positive: Hearing grossly normal, Pharyngeal erythema, Nasal congestion, Nasal drainage. Negative: Tonsillar swelling, Tonsillar exudate, Trismus, Muffled voice, Hoarse voice, Dental tenderness, Sinus tenderness, Uvula midline Neck: Positive: Supple, Nontender, No Lymphadenopathy Respiratory: Positive: Lungs clear, Normal breath sounds, No respiratory distress, No accessory muscle use Cardiovascular: Positive: RRR, No Murmur Musculoskeletal: Positive: No Edema Neurological: Positive: Alert Psychological Exam: Normal Skin Exam: Normal Diagnostics - Laboratory Lab Results: influenza (-) strep (-) Respiratory Course/Dx - Course Course Of Treatment: Lianna Sosa call by charge nurse awaiting to hear from HD - Differential Dx/Diagnosis Provider Diagnosis: Viral syndrome Discharge ED - Sign-Out/Discharge Documenting (check all that apply): Patient Departure All imaging exams completed and their final reports reviewed: No Studies - Discharge Plan Condition: Stable Disposition: HOME Patient Education Materials: Viral Syndrome (ED) Forms: *Work Release Additional Instructions: Covid 19 testing is pending Test will probably take 3-5 days rest fluids tylenol or advil I think you and your should isolate yourselves until test done If your become markedly short of breath you need to go to the ER strep and flu test negative - Billing Disposition and Condition Condition: STABLE Disposition: Home
== END 2019-10-16 20:30 | disposition home or self-care (01) ==
LOC: UCEAST 16:09
DX: B34.9 Viral infection, unspecified (principal); Z88.0 Allergy status to penicillin; Z91.040 Latex allergy status
CPT/HCPCS: 87651; 99212; G0463